=== PATIENT | male | born 1940 | race Two or more races ===

== ENCOUNTER 2018-10-27 12:14 | Inpatient (IN) | payer OTHER ==
[~2018-10-27] VITALS: Ht 177.8 cm; Wt 106.1 kg
[2018-10-27] MEDS ORDERED: SODIUM CHLORIDE 0.9% 1,000 ML IVB ONE (12:56)
[2018-10-27 13:01] LABS: Basophils # (auto) 0.1 uL; Eosinophils # (auto) 0 uL; Eosinophils % (auto) 0.3 % (0.0-7.0); Lymphocytes # (auto) 1.2 uL; Monocytes # (auto) 0.5 uL; Neutrophils # (auto) 8.6 uL; Nucleated Red Blood Cells % 0.1 %; White Blood Cell 10.4 10^3/uL (4.4-10.8)
[2018-10-27 13:03] LABS: Basophils % (auto) 0.6 % (0.0-2.0); Hematocrit 49.3 % (41.0-53.0); Hemoglobin 17.3 g/dL (13.5-17.5); Lymphocytes % (auto) 11.1 % (10.0-50.0); Mean Corpuscular Hemoglobin 34.5 pg (28.0-32.0); Mean Corpuscular Hgb Conc. 35.2 g/dL (32.0-36.0); Mean Corpuscular Volume 97.9 fL (80.0-100.0); Monocytes % (auto) 5.1 % (0.0-12.0); Neutrophils % (auto) 82.9 % (37.0-80.0); Platelet Count (auto) 138 10^3/uL (140-450); Red Blood Cells 5.03 10^6/uL (4.5-5.90); Red Cell Distribution Width 13.8 % (11.8-14.3)
[2018-10-27 13:26] LABS: Albumin 3.5 g/dL (3.4-5.0); BUN/Creatinine Ratio 10.3; Calcium 8.4 mg/dL (8.5-10.1); Potassium 3.8 mmol/L (3.5-5.1)
[2018-10-27 13:32] LABS: Bilirubin, Total 0.8 mg/dL (0.2-1.0); Total Protein 7.2 g/dL (6.4-8.2)
[2018-10-27 13:56] LABS: INR 1.07 (0.9-1.15); Partial Thromboplastin Time 27.3 sec (23.64-32.05)
[2018-10-27] MEDS ORDERED: ONDANSETRON HCL 4 MG/2 ML VIAL IV ONE (14:15)
[2018-10-27] MEDS ORDERED: MORPHINE SULF INJ 2 MG/ML SYRINGE 1ML IV ONE (14:15)
[2018-10-27 16:38] LABS: Urine Bacteria NONE SEEN /hpf (None Seen); Urine Blood TRACE /uL (Negative); Urine Specific Gravity 1.017 (1.001-1.035); Urine WBC <1 /hpf (0 - 3)
[2018-10-27] MEDS ORDERED: DEXTROSE (50%) 50ML SYRG IV PRN (17:15)
[2018-10-27] MEDS ORDERED: MORPHINE SULF INJ 2 MG/ML SYRINGE 1ML IV PRN (17:15)
[2018-10-27] MEDS ORDERED: hydrALAZINE HCL 20 MG/ML VL IV PRN (17:15)
[2018-10-27] MEDS ORDERED: LORazepam 0.5 MG TAB PO PRN (17:15)
[2018-10-27] MEDS ORDERED: NITROGLYCERIN 0.4 MG SL TAB SL PRN (17:15)
[2018-10-27] MEDS: HYDROmorphone HCL 2 MG/ML VL IV PRN ×2 (17:41→23:22)
[2018-10-27] MEDS: ONDANSETRON HCL 4 MG/2 ML VIAL IV PRN ×2 (17:42→23:21)
[2018-10-27] MEDS: SODIUM CHLORIDE 0.9% 1,000 ML IV SCH ×2 (17:46→20:46)
[2018-10-27] MEDS: InsuLIN REG 1unit/0.01ml Soln (100units/ml) SC SCH (18:00)
--- NOTE | 2018-10-27 18:00 | NUR ---
MS admit from ER JOSE G WEEKS admitted to Telemetry unit after SBAR received. Patient oriented to Eneida Nails, primary RN, unit, room, bed, and unit policies regarding patient care and visiting hours. Patient placed on bedside oxygen, weighed by bedscale and encouraged to call if they need something. All questions and concerns addressed, patient verbalized understanding. Note: PT DENIES PAIN OR NAUSEA AT THIS TIME. VERBALIZED COMFORT.
[2018-10-27 18:24] LABS: Cholesterol 163 mg/dL (< 200)
[2018-10-27 18:27] LABS: HDL Cholesterol 38 mg/dL (40-59); LDL Cholesterol 120 mg/dL (< 100); Triglycerides 96 mg/dL (< 150)
[2018-10-27] MEDS: ACCU-CHEK COMFORT CURVE STRIP VI SCH (18:30)
--- NOTE | 2018-10-27 18:44 | NUR ---
Home medications Patient unable to recall names of the medications that he takes at home, Requested to have family bring in a copy/list of his medications.
--- NOTE | 2018-10-27 19:30 | NUR ---
Opening Shift Note Assumed care of patient, alert and oriented x 4. Patient is on room air and ambulatory. No S/S of distress/SOB or pain. Bed in lowest locked position, side rails up x 2, call light within reach. Instructed on POC and to call for assist PRN, will continue to monitor for changes Q1hr and PRN.
[2018-10-27 20:00] VITALS: BP 102/56
--- NOTE | 2018-10-27 21:49 | NUR ---
AMA to smoke Patient was educated on smoking cessation and advised against smoking. Patient verbalized understanding. Signed AMA form to smoke. Will continue to monitor.
--- NOTE | 2018-10-27 21:50 | NUR ---
Patient went down to smoke via wheelchair.
[2018-10-27 22:00] VITALS: BP 102/56
--- NOTE | 2018-10-27 22:30 | NUR ---
Patient returned to room from smoking. Resting in bed.
[2018-10-28] MEDS: ACCU-CHEK COMFORT CURVE STRIP VI SCH ×4 (00:29→18:00)
[2018-10-28] MEDS: InsuLIN REG 1unit/0.01ml Soln (100units/ml) SC SCH ×4 (00:30→18:35)
[2018-10-28] MEDS: SODIUM CHLORIDE 0.9% 1,000 ML IV SCH ×5 (02:20→23:01)
[2018-10-28] MEDS: ACETAMINOPHEN 325 MG TAB PO PRN (03:16)
[2018-10-28 05:16] VITALS: BP 91/43
[2018-10-28 05:24] LABS: Basophils # (auto) 0.1 uL; Eosinophils # (auto) 0.1 uL; Monocytes # (auto) 0.8 uL; Monocytes % (auto) 7.9 % (0.0-12.0); Nucleated Red Blood Cells % 0.1 %; Platelet Count (auto) 120 10^3/uL (140-450); White Blood Cell 9.7 10^3/uL (4.4-10.8)
[2018-10-28 05:26] LABS: Basophils % (auto) 0.8 % (0.0-2.0); Eosinophils % (auto) 1.4 % (0.0-7.0); Lymphocytes # (auto) 1.1 uL; Lymphocytes % (auto) 11.6 % (10.0-50.0); Mean Corpuscular Hemoglobin 34.5 pg (28.0-32.0); Mean Corpuscular Hgb Conc. 34.7 g/dL (32.0-36.0); Mean Corpuscular Volume 99.2 fL (80.0-100.0); Neutrophils # (auto) 7.6 uL; Neutrophils % (auto) 78.3 % (37.0-80.0); Red Blood Cells 4.34 10^6/uL (4.5-5.90); Red Cell Distribution Width 13.9 % (11.8-14.3)
[2018-10-28 05:30] LABS: Albumin 2.8 g/dL (3.4-5.0); Anion Gap 9 (5-15); BUN/Creatinine Ratio 10.7; Blood Urea Nitrogen 12 mg/dL (7-18); Calcium 7.5 mg/dL (8.5-10.1); Carbon Dioxide 22 mmol/L (21-32); Chloride 110 mmol/L (98-107); GFR African American 82 mL/min; GFR Non-African American 67 mL/min; Glucose 129 mg/dL (74-106); Lipase 350 U/L (73-393); Potassium 3.7 mmol/L (3.5-5.1); Sodium 141 mmol/L (136-145)
[2018-10-28 05:33] LABS: Alanine Aminotransferase 17 U/L (16-61); Alkaline Phosphatase 47 U/L (45-117); Aspartate Aminotransferase 16 U/L (15-37); Bilirubin, Total 1.1 mg/dL (0.2-1.0); Total Protein 5.8 g/dL (6.4-8.2)
--- NOTE | 2018-10-28 06:48 | NUR ---
Closing shift note Patient asleep in bed resting. No acute S/S of distress or SOB. Bed in lowest locked position, side rails up x 2, call light within reach. Will endorse care to dayshift RN.
--- NOTE | 2018-10-28 07:30 | NUR ---
Opening Shift Note Assumed care of patient, awake and alert. No S/S of distress/SOB or pain. Instructed on POC and to [place] lfor assist PRN, will continue to monitor for changes Q1hr and PRN.
[2018-10-28 08:12] VITALS: BP 103/39
[2018-10-28] MEDS: HYDROmorphone HCL 2 MG/ML VL IV PRN ×2 (11:21→20:13)
[2018-10-28 12:26] VITALS: BP 110/58
[2018-10-28 16:50] VITALS: BP 98/61
--- NOTE | 2018-10-28 17:00 | NUR ---
SPOKE TO DR POTTER RE: CONSULT. HE WILL SEE PT TOMORROW.
--- NOTE | 2018-10-28 19:00 | NUR ---
CLOSING NOTES PT AWAKE AND ALERT. PT WAS DISCOURAGED TO GO OUTSIDE IN HIS CURRENT CONDITION BUT HE INSISTED ON GOING OUTSIDE TO SMOKE. PT IS NOT STABLE TO WALK LONG DISTANCE ON HIS OWN AND WAS GIVEN A WHEELCHAIR. PT IS AWARE OF THE SURGICAL CONSULT AND THAT HE WILL BE NPO AT MIDNIGHT.
--- NOTE | 2018-10-28 19:20 | NUR ---
Opening Shift Note Assumed care of patient, alert and oriented x 4. No S/S of distress/SOB. Patient reported pain level of 8. Patient on bedrest, weak gait but insists to use wheelchair to go down to smoke, patient educated and advised of smoking cessation and offered nicotine patch, patient refused. Has signed AMA to smoke in hard chart. Bed in lowest locked position, side rails up x 2, call light within reach. Instructed on POC and to call for assist PRN, will continue to monitor for changes Q1hr and PRN.
[2018-10-28 20:00] VITALS: BP 95/37
[2018-10-28 22:00] VITALS: BP 93/37
[2018-10-29] MEDS: ACCU-CHEK COMFORT CURVE STRIP VI SCH ×3 (00:05→11:42)
[2018-10-29] MEDS: SODIUM CHLORIDE 0.9% 1,000 ML IV SCH ×3 (04:01→14:01)
[2018-10-29 05:00] VITALS: BP 88/34
[2018-10-29] MEDS: ACETAMINOPHEN 325 MG TAB PO PRN (05:12)
[2018-10-29] MEDS: HYDROmorphone HCL 2 MG/ML VL IV PRN (05:13)
--- NOTE | 2018-10-29 05:13 | NUR ---
Blood pressure 88/34 Patient is asymptomatic. Rechecked blood pressure reading 103/57. No acute S/S of SOB or distress. Will continue to monitor and continue care.
--- NOTE | 2018-10-29 05:15 | NUR ---
Temperature 101.8 Oral temp of 101.8. Patient reported feeling cold. Administered Acetaminophen 650mg PO. Placed ice packs to patients neck and removed covers. No acute S/S of distress. Will reassess and continue to monitor.
[2018-10-29] MEDS: InsuLIN REG 1unit/0.01ml Soln (100units/ml) SC SCH ×3 (05:44→11:42)
--- NOTE | 2018-10-29 05:58 | NUR ---
Reassessed patients temperature reading of 98.8. Patient reports no longer having chill. No acute S/S of distress. Patient resting in bed. Will continue to monitor and continue care.
[2018-10-29 06:03] LABS: Basophils # (auto) 0.1 uL; Eosinophils # (auto) 0.1 uL; Eosinophils % (auto) 0.8 % (0.0-7.0); Hemoglobin 14.6 g/dL (13.5-17.5); Monocytes # (auto) 0.6 uL; Platelet Count (auto) 113 10^3/uL (140-450); Red Blood Cells 4.19 10^6/uL (4.5-5.90); White Blood Cell 9.5 10^3/uL (4.4-10.8)
[2018-10-29 06:05] LABS: Basophils % (auto) 0.9 % (0.0-2.0); Hematocrit 41.7 % (41.0-53.0); Lymphocytes # (auto) 0.8 uL; Lymphocytes % (auto) 8.8 % (10.0-50.0); Mean Corpuscular Hemoglobin 34.8 pg (28.0-32.0); Mean Corpuscular Hgb Conc. 35.1 g/dL (32.0-36.0); Mean Corpuscular Volume 99.4 fL (80.0-100.0); Monocytes % (auto) 6.8 % (0.0-12.0); Neutrophils # (auto) 7.9 uL; Neutrophils % (auto) 82.7 % (37.0-80.0); Red Cell Distribution Width 13.7 % (11.8-14.3)
[2018-10-29 06:29] LABS: Albumin 2.9 g/dL (3.4-5.0); Calcium 7.7 mg/dL (8.5-10.1); Potassium 3.9 mmol/L (3.5-5.1)
[2018-10-29 06:35] LABS: BUN/Creatinine Ratio 11.6; Bilirubin, Total 1.3 mg/dL (0.2-1.0); Total Protein 6.1 g/dL (6.4-8.2)
--- NOTE | 2018-10-29 06:37 | NUR ---
Closing shift note Patient resting in bed. No acute S/S of distress or SOB noted. Bed in lowest locked position, side rails up x 2, call light within reach. Will endorse care to dayshift RN.
--- NOTE | 2018-10-29 07:30 | NUR ---
Opening Shift Note Assumed care of patient, awake, alert, and oriented x4. No S/S of distress/SOB or pain. IV is in left forearm 20 gauge asymptomatic, intact, patent, and infusing normal saline at 200 mL/hour. Bed is locked and in lowest position and call light is within reach. Instructed on POC and to call for assist PRN, and patient verbalized understanding. Will continue to monitor for changes Q1hr and PRN.
--- NOTE | 2018-10-29 08:00 | NUR ---
Patient taken down to Radiology via wheelchair. No distress noted at time of departure.
[2018-10-29 09:00] VITALS: BP 105/48
--- NOTE | 2018-10-29 09:28 | NUR ---
Received phone call from Dr. Hakeem MD. New orders received.
--- NOTE | 2018-10-29 10:20 | NUR ---
Patient returned from Radiology via wheelchair. No distress noted at time of arrival. Will continue to monitor patient Q1.
--- NOTE | 2018-10-29 10:33 | NUR ---
Dr. Hakeem MD, at bedside. New orders received.
[2018-10-29] MEDS ORDERED: LISI2.5T47 PO ×2 (11:10)
[2018-10-29] MEDS ORDERED: GLIP-204 PO (11:11)
[2018-10-29] MEDS ORDERED: SERT-138 PO (11:12)
[2018-10-29] MEDS ORDERED: QUET25TA46 PO (11:12)
[2018-10-29] MEDS ORDERED: ALBU1AER4 IN (11:13)
[2018-10-29 13:29] VITALS: BP 96/58
--- NOTE | 2018-10-29 13:30 | NUR ---
Discharge instructions given as ordered. Encourage to follow up with PMD as instructed. All questions and concerns addressed. Patient verbalized understanding. Medication reconciliation form completed and copy given to patient. IV removed with catheter intact, pressure dressing applied.
--- NOTE | 2018-10-29 14:53 | NUR ---
Patient taken to taxi via wheelchair with all personal belongings, accompanied by staff. No distress noted at time of departure.
--- NOTE | 2018-10-30 15:29 | NUR ---
SS order: called x 2 yesterday and x 3 today to [facility] to find out what agency the got for pt. I had to leave messages and have yet to receive a call back from [employer] or .
== END 2018-10-29 14:00 | disposition home health service (06) | DRG 439 ==
LOC: ER 12:14 → OVERFLOW 12:15 → WEST WING 18:05
PROVIDERS: ADMIT Hospitalist; ATTEND Hospitalist
DX: K85.00 Idiopathic acute pancreatitis without necrosis or infection (principal); I69.354 Hemiplegia and hemiparesis following cerebral infarction affecting left non-dominant side; I10 Essential (primary) hypertension; E11.9 Type 2 diabetes mellitus without complications; R74.8 Abnormal levels of other serum enzymes; D69.6 Thrombocytopenia, unspecified; F17.210 Nicotine dependence, cigarettes, uncomplicated; J44.9 Chronic obstructive pulmonary disease, unspecified; Z82.49 Family history of ischemic heart disease and other diseases of the circulatory system; Z90.49 Acquired absence of other specified parts of digestive tract; Z90.5 Acquired absence of kidney
CPT/HCPCS: 36415; 71045; 74176; 76705; 78226; 80053; 80061; 81001; 82150; 82962; 83036; 83690; 83735; 84484; 85025; 85610; 85730; 93005; 94761; 96360; G0378; J1815; J2405

== ENCOUNTER 2018-12-30 19:29 | Emergency (ER) | payer OTHER ==
[~2018-12-30] VITALS: Ht 175.3 cm; Wt 99.8 kg
[~2018-12-30 19:29] MED LIST: ALBU1AER4 IN; GLIP-204 PO; LISI2.5T47 PO; QUET25TA46 PO; SERT50TA PO
[2018-12-30] MEDS ORDERED: ONDANSETRON HCL 4 MG/2 ML VIAL ONE (19:53)
[2018-12-30] MEDS ORDERED: MORPHINE SULF INJ 2 MG/ML SYRINGE 1ML ONE (19:54)
[2018-12-30] MEDS ORDERED: ONDANSETRON HCL 4 MG/2 ML VIAL IV ONE (20:00)
[2018-12-30] MEDS ORDERED: MORPHINE SULFATE 4 MG/ML SYR/VIAL IV ONE (20:00)
[2018-12-30 20:24] LABS: Basophils # (auto) 0 uL; Basophils % (auto) 0.3 % (0.0-2.0); Eosinophils # (auto) 0 uL; Eosinophils % (auto) 0.3 % (0.0-7.0); Hematocrit 45.5 % (41.0-53.0); Hemoglobin 15.8 g/dL (13.5-17.5); Lymphocytes # (auto) 0.5 uL; Lymphocytes % (auto) 4.6 % (10.0-50.0); Mean Corpuscular Hemoglobin 34.5 pg (28.0-32.0); Mean Corpuscular Hgb Conc. 34.7 g/dL (32.0-36.0); Mean Corpuscular Volume 99.4 fL (80.0-100.0); Monocytes # (auto) 0.7 uL; Monocytes % (auto) 6.7 % (0.0-12.0); Neutrophils # (auto) 9.5 uL; Neutrophils % (auto) 88.1 % (37.0-80.0); Platelet Count (auto) 160 10^3/uL (140-450); Red Blood Cells 4.58 10^6/uL (4.5-5.90); Red Cell Distribution Width 14.3 % (11.8-14.3); White Blood Cell 10.7 10^3/uL (4.4-10.8)
[2018-12-30 20:41] LABS: Albumin 2.9 g/dL (3.4-5.0); Anion Gap 11 (5-15); Aspartate Aminotransferase 64 U/L (15-37); Blood Urea Nitrogen 17 mg/dL (7-18); Calcium 7.6 mg/dL (8.5-10.1); Carbon Dioxide 21 mmol/L (21-32); Chloride 107 mmol/L (98-107); Glucose 87 mg/dL (74-106); Lipase 35 U/L (73-393); Sodium 139 mmol/L (136-145)
[2018-12-30 20:46] LABS: Alanine Aminotransferase 91 U/L (16-61); Alkaline Phosphatase 96 U/L (45-117); BUN/Creatinine Ratio 13.6; Bilirubin, Total 5.6 mg/dL (0.2-1.0); GFR African American 72 mL/min; GFR Non-African American 59 mL/min; Total Protein 6.2 g/dL (6.4-8.2)
[2018-12-30 21:00] LABS: Potassium 2.9 mmol/L (3.5-5.1)
[2018-12-30] MEDS ORDERED: POTASSIUM EFFERVESENT TAB 25 MEQ PO ONE (21:15)
[2018-12-30] MEDS ORDERED: POTASSIUM CHL 20MEQ/100ML 100 ML IV ONE (21:15)
[2018-12-31 01:06] VITALS: BP 105/55
[2018-12-31 01:16] LABS: Albumin 3.3 g/dL (3.4-5.0); Bilirubin, Direct 4.9 mg/dL (0-0.2)
[2018-12-31 01:19] LABS: Bilirubin, Total 6.6 mg/dL (0.2-1.0); Total Protein 6.5 g/dL (6.4-8.2)
== END 2018-12-31 01:10 | disposition home or self-care (01) ==
LOC: EDBD 19:29 → ER 19:35
DX: K86.1 Other chronic pancreatitis (principal); R94.5 Abnormal results of liver function studies; I10 Essential (primary) hypertension; E11.9 Type 2 diabetes mellitus without complications; E78.00 Pure hypercholesterolemia, unspecified; F17.210 Nicotine dependence, cigarettes, uncomplicated; Z86.73 Personal history of transient ischemic attack (TIA), and cerebral infarction without residual deficits; Z79.899 Other long term (current) drug therapy; Z79.84 Long term (current) use of oral hypoglycemic drugs
CPT/HCPCS: 36415; 74176; 76705; 80053; 80076; 80320; 82150; 83690; 84484; 85025; 93005; 96374; 96375; 99284; J2270; J2405; J3480

== ENCOUNTER 2018-12-31 22:23 | Emergency (ER) | payer OTHER ==
[~2018-12-31] VITALS: Ht 180.3 cm; Wt 100.7 kg
[2018-12-31] MEDS ORDERED: MORPHINE SULFATE 4 MG/ML SYR/VIAL IV ONE (23:45)
[2018-12-31] MEDS ORDERED: ONDANSETRON HCL 4 MG/2 ML VIAL IV ONE (23:45)
[2018-12-31 23:53] LABS: Basophils # (auto) 0 uL; Basophils % (auto) 0.2 % (0.0-2.0); Eosinophils # (auto) 0.1 uL; Eosinophils % (auto) 0.5 % (0.0-7.0); Hemoglobin 15.5 g/dL (13.5-17.5); Monocytes # (auto) 0.8 uL
[2018-12-31 23:55] LABS: Hematocrit 44.3 % (41.0-53.0); Lymphocytes # (auto) 0.7 uL; Lymphocytes % (auto) 6.2 % (10.0-50.0); Mean Corpuscular Hemoglobin 34.7 pg (28.0-32.0); Mean Corpuscular Hgb Conc. 34.9 g/dL (32.0-36.0); Mean Corpuscular Volume 99.5 fL (80.0-100.0); Monocytes % (auto) 7.1 % (0.0-12.0); Platelet Count (auto) 149 10^3/uL (140-450); Red Blood Cells 4.46 10^6/uL (4.5-5.90); Red Cell Distribution Width 14.3 % (11.8-14.3); White Blood Cell 11.6 10^3/uL (4.4-10.8)
[2019-01-01 00:12] LABS: Calcium 8.2 mg/dL (8.5-10.1); Potassium 3.7 mmol/L (3.5-5.1)
[2019-01-01 00:17] LABS: Bilirubin, Total 6.8 mg/dL (0.2-1.0); Total Protein 6.7 g/dL (6.4-8.2)
[2019-01-01 01:51] LABS: Urine Bacteria FEW /hpf (None Seen); Urine Blood Negative /uL (Negative); Urine Specific Gravity 1.016 (1.001-1.035); Urine WBC 3 /hpf (0 - 3)
[2019-01-01 04:57] VITALS: BP 100/44
== END 2019-01-01 06:47 | disposition home or self-care (01) ==
LOC: EDBD 22:23 → ER 22:24
DX: K86.1 Other chronic pancreatitis (principal); K75.9 Inflammatory liver disease, unspecified; E11.9 Type 2 diabetes mellitus without complications; E78.5 Hyperlipidemia, unspecified; I10 Essential (primary) hypertension; F17.210 Nicotine dependence, cigarettes, uncomplicated; Z86.73 Personal history of transient ischemic attack (TIA), and cerebral infarction without residual deficits; Z79.899 Other long term (current) drug therapy
CPT/HCPCS: 36415; 80053; 81001; 82140; 82150; 82962; 83605; 83690; 85025; 93005; 96374; 96375; 99284; J2270; J2405

== ENCOUNTER → 2020-01-07 | Emergency (ER) | payer OTHER ==
[~2020-01-07] VITALS: Ht 154.9 cm; Wt 90.7 kg
[~2020-01-07] MED LIST changes: +MORPHINE SULFATE 4 MG/ML SYR/VIAL IV ONE; +ONDANSETRON HCL 4 MG/2 ML VIAL IV ONE
[2020-01-07 06:42] LABS: Eosinophils # (auto) 0.3 10 ^3/uL (0-0.8); Lymphocytes # (auto) 1.1 10 ^3/uL (0.4-5.4); Monocytes # (auto) 0.6 10 ^3/uL (0-1.3); Neutrophils # (auto) 7.8 10 ^3/uL (1.6-8.6); Nucleated Red Blood Cells % 0.1 %; Red Blood Cells 4.61 10^6/uL (4.5-5.90)
[2020-01-07 06:44] LABS: Basophils # (auto) 0 10 ^3/uL (0-0.2); Basophils % (auto) 0.5 % (0.0-2.0); Eosinophils % (auto) 2.8 % (0.0-7.0); Hematocrit 47.1 % (41.0-53.0); Hemoglobin 15.5 g/dL (13.5-17.5); Lymphocytes % (auto) 11.2 % (10.0-50.0); Mean Corpuscular Hemoglobin 33.7 pg (28.0-32.0); Mean Corpuscular Volume 102.2 fL (80.0-100.0); Monocytes % (auto) 5.9 % (0.0-12.0); Neutrophils % (auto) 79.6 % (37.0-80.0); Platelet Count (auto) 162 10^3/uL (140-450); Red Cell Distribution Width 13.9 % (11.8-14.3); White Blood Cell 9.9 10^3/uL (4.4-10.8)
[2020-01-07 06:56] LABS: Albumin 2.5 g/dL (3.4-5.0); Calcium 9.1 mg/dL (8.5-10.1); Potassium 3.8 mmol/L (3.5-5.1)
[2020-01-07 06:59] LABS: BUN/Creatinine Ratio 10.4; Bilirubin, Total 2.4 mg/dL (0.2-1.0); Total Protein 6.6 g/dL (6.4-8.2)
[2020-01-07 15:33] VITALS: BP 101/66
== END | disposition home or self-care (01) ==
LOC: EDUNIT# 05:33 → EDBD 05:44 → ER 05:44
DX: K74.60 Unspecified cirrhosis of liver (principal); E46 Unspecified protein-calorie malnutrition; F17.210 Nicotine dependence, cigarettes, uncomplicated; E11.9 Type 2 diabetes mellitus without complications; I10 Essential (primary) hypertension; Z86.73 Personal history of transient ischemic attack (TIA), and cerebral infarction without residual deficits; Z79.899 Other long term (current) drug therapy
CPT/HCPCS: 36415; 74176; 80053; 82150; 83690; 85025; 93005; 96374; 96375; 99285; J2270; J2405

== ENCOUNTER 2020-01-08 13:00 | Inpatient (IN) | payer OTHER ==
[~2020-01-08] VITALS: Ht 177.8 cm; Wt 109.6 kg
[~2020-01-08 13:00] MED LIST changes: -MORPHINE SULFATE 4 MG/ML SYR/VIAL IV ONE; -ONDANSETRON HCL 4 MG/2 ML VIAL IV ONE
[2020-01-08] MEDS ORDERED: PANTOPRAZOLE 40 MG/10 ML VIAL INJ IV STA (13:27)
[2020-01-08] MEDS ORDERED: SODIUM CHLORIDE 0.9% 500 ML IVB ONE (13:27)
[2020-01-08] MEDS ORDERED: ONDANSETRON HCL 4 MG/2 ML VIAL IV ONE ×2 (13:30→17:30)
[2020-01-08] MEDS ORDERED: HYDROmorphone HCL 2 MG/ML VL IV ONE ×2 (13:30→17:30)
[2020-01-08 14:36] LABS: Basophils # (auto) 0 10 ^3/uL (0-0.2); Basophils % (auto) 0.4 % (0.0-2.0); Eosinophils # (auto) 0.1 10 ^3/uL (0-0.8); Eosinophils % (auto) 0.6 % (0.0-7.0); Hematocrit 46.5 % (41.0-53.0); Hemoglobin 15.2 g/dL (13.5-17.5); Lymphocytes # (auto) 0.7 10 ^3/uL (0.4-5.4); Lymphocytes % (auto) 5.2 % (10.0-50.0); Mean Corpuscular Hgb Conc. 32.6 g/dL (32.0-36.0); Mean Corpuscular Volume 101.1 fL (80.0-100.0); Monocytes # (auto) 0.6 10 ^3/uL (0-1.3); Monocytes % (auto) 4.9 % (0.0-12.0); Neutrophils # (auto) 11.7 10 ^3/uL (1.6-8.6); Neutrophils % (auto) 88.9 % (37.0-80.0); Nucleated Red Blood Cells % 0.1 %; Platelet Count (auto) 161 10^3/uL (140-450); Red Cell Distribution Width 13.9 % (11.8-14.3); White Blood Cell 13.2 10^3/uL (4.4-10.8)
[2020-01-08 16:44] LABS: Urine Bacteria NONE SEEN /hpf (None Seen); Urine Blood Negative /uL (Negative); Urine Mucus FEW (None Seen); Urine Specific Gravity 1.019 (1.001-1.035); Urine WBC 21 /hpf (0 - 3)
[2020-01-08] MEDS ORDERED: cefTRIAXone 1GM/50ML D5W 50 ML IV ONE (17:30)
[2020-01-08] MEDS ORDERED: ACETAMINOPHEN 325 MG TAB PO PRN (18:00)
[2020-01-08] MEDS ORDERED: MORPHINE SULF INJ 2 MG/ML SYRINGE 1ML IV PRN (18:00)
[2020-01-08] MEDS ORDERED: NITROGLYCERIN 0.4 MG SL TAB SL PRN (18:00)
[2020-01-08] MEDS ORDERED: ONDANSETRON HCL 4 MG/2 ML VIAL IV PRN (18:00)
[2020-01-08] MEDS ORDERED: ALBUTEROL SULFATE 108 MCG IN PRN (18:15)
[2020-01-08] MEDS ORDERED: ALBUTEROL SULF 2.5 MG/0.5ML(0.5%) NEB SOLN NEB PRN (18:30)
[2020-01-08 19:56] LABS: Chloride 108 mmol/L (98-107); Potassium 4.1 mmol/L (3.5-5.1); Sodium 138 mmol/L (136-145)
[2020-01-08 20:07] LABS: Alanine Aminotransferase 80 U/L (16-61); Alkaline Phosphatase 146 U/L (45-117); Aspartate Aminotransferase 71 U/L (15-37); Bilirubin, Total 9.2 mg/dL (0.2-1.0); GFR African American 58 mL/min; GFR Non-African American 48 mL/min; Total Protein 7.3 g/dL (6.4-8.2)
[2020-01-08 20:33] VITALS: BP 93/51
--- NOTE | 2020-01-08 20:45 | NUR ---
MS admit from ER JOSE G WEEKS admitted to tele/MS after SBAR received. Patient oriented to Sunitha Beltran RN primary RN, unit, room, bed, and unit policies regarding patient care and visiting hours. Patient weighed by bedscale and encouraged to call if they need something. All questions and concerns addressed, patient verbalized understanding, will continue to monitor Note:
[2020-01-08 21:00] LABS: Albumin 3.2 g/dL (3.4-5.0); Anion Gap 15 (5-15); BUN/Creatinine Ratio 12.8; Blood Urea Nitrogen 19 mg/dL (7-18); Calcium 9.3 mg/dL (8.5-10.1); Carbon Dioxide 15 mmol/L (21-32); Glucose 63 mg/dL (74-106)
--- NOTE | 2020-01-08 21:00 | NUR ---
Spoke to pharmacist regarding time of antibiotic. Per pharmacist, its OK to skip midnight dose since first dose will be given at 2100.
[2020-01-08 21:01] LABS: Lipase 50 U/L (73-393)
--- NOTE | 2020-01-08 21:25 | NUR ---
PT ASSESSED FOR PRN MED NEB TX. SPO2 96% ON 2L NC. PT DENIES ANY RESPIRATORY DISTRESS. NO TX INDICATED. PT IS AWARE TO HAVE RT PAGED IF TX NEEDED.
[2020-01-08 21:27] VITALS: BP 97/28
[2020-01-08] MEDS: PIPERACILLIN-TAZOB 3.375GM 100 ML IV SCH (21:39)
[2020-01-08] MEDS: QUEtiapine FUMARATE 25 MG TAB PO SCH (21:40)
[2020-01-08] MEDS: SODIUM CHLORIDE 0.9% 1,000 ML IV SCH (21:40)
[2020-01-08 22:39] LABS: Albumin 2.5 g/dL (3.4-5.0); Calcium 8.2 mg/dL (8.5-10.1); Potassium 4.3 mmol/L (3.5-5.1)
[2020-01-08 22:44] LABS: BUN/Creatinine Ratio 13.8; Bilirubin, Total 7.5 mg/dL (0.2-1.0); Total Protein 6.1 g/dL (6.4-8.2)
[2020-01-08 23:46] VITALS: BP 93/51
[2020-01-09 01:20] VITALS: BP 93/51
--- NOTE | 2020-01-09 04:15 | NUR ---
Patient complained of abdominal pain 8, noted no pain meds at this time. Paged , awaiting call back
--- NOTE | 2020-01-09 04:17 | NUR ---
Spoke to Dr. Scott and updated on patient's status. Received new order at this time and read back, will carry out order
[2020-01-09] MEDS: MORPHINE SULF INJ 2 MG/ML SYRINGE 1ML IV PRN (04:28)
--- NOTE | 2020-01-09 04:34 | NUR ---
Instructed patient to be NPO for now, for MRCP MRI today, patient verbalized understanding
[2020-01-09 05:00] VITALS: BP 116/47
[2020-01-09] MEDS: PIPERACILLIN-TAZOB 3.375GM 100 ML IV SCH ×4 (05:51→18:00)
[2020-01-09 06:13] LABS: Basophils # (auto) 0 10 ^3/uL (0-0.2); Basophils % (auto) 0.3 % (0.0-2.0); Eosinophils # (auto) 0.1 10 ^3/uL (0-0.8); Eosinophils % (auto) 1.6 % (0.0-7.0); Hematocrit 42.3 % (41.0-53.0); Hemoglobin 14.1 g/dL (13.5-17.5); Lymphocytes # (auto) 0.9 10 ^3/uL (0.4-5.4); Mean Corpuscular Hemoglobin 33.6 pg (28.0-32.0); Mean Corpuscular Hgb Conc. 33.3 g/dL (32.0-36.0); Mean Corpuscular Volume 101.1 fL (80.0-100.0); Monocytes # (auto) 0.5 10 ^3/uL (0-1.3); Monocytes % (auto) 6.2 % (0.0-12.0); Neutrophils # (auto) 5.9 10 ^3/uL (1.6-8.6); Neutrophils % (auto) 79.9 % (37.0-80.0); Platelet Count (auto) 120 10^3/uL (140-450); Red Blood Cells 4.19 10^6/uL (4.5-5.90); White Blood Cell 7.3 10^3/uL (4.4-10.8)
[2020-01-09 07:12] LABS: Potassium 3.5 mmol/L (3.5-5.1)
[2020-01-09 07:30] LABS: Albumin 2.4 g/dL (3.4-5.0); BUN/Creatinine Ratio 15.3; Bilirubin, Total 6.6 mg/dL (0.2-1.0); Calcium 8.3 mg/dL (8.5-10.1); Total Protein 5.9 g/dL (6.4-8.2)
[2020-01-09 08:15] LABS: INR 1.26 (0.9-1.15)
[2020-01-09 08:39] VITALS: BP 83/46
[2020-01-09] MEDS: SODIUM CHLORIDE 0.9% 1,000 ML IV SCH ×3 (09:27→23:10)
--- NOTE | 2020-01-09 09:40 | NUR ---
PATIENT STATES HE CAN'T HAVE MRI BECAUSE HE HAS A PIN IN HIS BACK AND WAS TOLD HE CANNOT HAVE MRI'S.
[2020-01-09] MEDS: SERTRALINE HCL 50 MG TAB PO SCH (09:45)
--- NOTE | 2020-01-09 11:00 | NUR ---
Respiratory note: PT ASSESSED FOR PRN MN TX. HR 58, RR 18, POX 92% ON RA, BS ARE CLR. NO SOB OR DISTRESS NOTED AT THIS TIME. PT WAS NOTIFY TO HAVE RT PAGED FOR MN TX.
[2020-01-09 13:07] VITALS: BP 92/46
--- NOTE | 2020-01-09 14:39 | NUR ---
Assessment Patient is an 79-year-old male who is alert and oriented. Prior to admission patient lived home with family and functioned with assistance. Per patient his son Bertin Schreiber helps him with his ADLs. Per patient he will return home to his prior living arrangements post discharge. Advised patient there is a social service consult for hospice. Patient informed me doctor spoke to him in regards of hospice. Per patient he would like the hospice that doctor is recommending. Informed patient he has the right to participate in all discharge planning. Patient verbalized understanding and agreed to discharge plan. Clinical information was faxed to [facility]. Per So with [facility] patient has been accepted and service to start upon d/c . Transportation will be arranged upon discharge day. Addendum: 01/09/20 at 1507 by KASIE WHITING SS Amended: Links added.
[2020-01-09 16:34] VITALS: BP 95/46
--- NOTE | 2020-01-09 19:20 | NUR ---
Opening Shift Note Assumed care of patient from MESFIN Grover, awake and alert. No S/S of distress/SOB or pain. Instructed on POC and to call for assist PRN, bed in lowest position, brakes locked, call light and urinal within reach. Bed alarm on. Will continue to monitor for changes Q1hr and PRN.
--- NOTE | 2020-01-09 20:27 | NUR ---
Respiratory note: ASSESSED PT FOR PRN MED NEB AT THIS TIME, NO DISTRESS NOTED, PULSE OX 94% ON RA, HR 56, RR 18, BILATERAL BS DIMINISHED
--- NOTE | 2020-01-09 20:30 | NUR ---
IV removal IV site leaking. IV DC'd with clean sterile technique, catheter fully intact. Pressure dressing applied to site. Patient tolerated well.
--- NOTE | 2020-01-09 20:45 | NUR ---
IV insertion IV access obtained, via clean sterile technique by inserting 20gauge catheter at Left Forarm after 1 attempt. IV secured properly. No trauma to site. Patient tolerated well.
[2020-01-09 21:34] VITALS: BP 115/52
[2020-01-09] MEDS: PANTOPRAZOLE 40 MG TAB PO SCH (22:30)
[2020-01-09] MEDS: QUEtiapine FUMARATE 25 MG TAB PO SCH (22:30)
[2020-01-10] MEDS: PIPERACILLIN-TAZOB 3.375GM 100 ML IV SCH ×3 (00:05→12:17)
[2020-01-10 04:56] VITALS: BP 117/59
--- NOTE | 2020-01-10 05:30 | NUR ---
Respiratory note: ASSESSED PT FOR PRN MED NEB AT THIS TIME, NO DISTRESS NOTED, PULSE OX 93% ON RA, HR 58, RR 18, BILATERAL BS DIMINISHED. PT AWARE TO HAVE RT PAGED IF BECOMES SOB.
[2020-01-10] MEDS: MORPHINE SULF INJ 2 MG/ML SYRINGE 1ML IV PRN (06:00)
[2020-01-10 06:29] LABS: Basophils # (auto) 0 10 ^3/uL (0-0.2); Basophils % (auto) 0.4 % (0.0-2.0); Eosinophils # (auto) 0.2 10 ^3/uL (0-0.8); Hematocrit 38.4 % (41.0-53.0); Lymphocytes # (auto) 0.8 10 ^3/uL (0.4-5.4); Monocytes # (auto) 0.3 10 ^3/uL (0-1.3)
[2020-01-10 06:34] LABS: Eosinophils % (auto) 5.1 % (0.0-7.0); Hemoglobin 13.4 g/dL (13.5-17.5); Lymphocytes % (auto) 19.3 % (10.0-50.0); Mean Corpuscular Hemoglobin 34.8 pg (28.0-32.0); Mean Corpuscular Hgb Conc. 34.7 g/dL (32.0-36.0); Mean Corpuscular Volume 100.1 fL (80.0-100.0); Monocytes % (auto) 8.2 % (0.0-12.0); Neutrophils # (auto) 2.6 10 ^3/uL (1.6-8.6); Platelet Count (auto) 114 10^3/uL (140-450); Red Blood Cells 3.84 10^6/uL (4.5-5.90); White Blood Cell 3.9 10^3/uL (4.4-10.8)
[2020-01-10 06:43] LABS: Albumin 2.3 g/dL (3.4-5.0); Calcium 7.8 mg/dL (8.5-10.1); Potassium 3.4 mmol/L (3.5-5.1)
[2020-01-10 06:47] LABS: BUN/Creatinine Ratio 13.3; Bilirubin, Total 6.8 mg/dL (0.2-1.0); Total Protein 5.6 g/dL (6.4-8.2)
[2020-01-10] MEDS ORDERED: POTASSIUM CHL 20 Meq TABLET PO ONE (07:30)
[2020-01-10] MEDS ORDERED: PANT40TA2 PO (07:30)
[2020-01-10] MEDS: SODIUM CHLORIDE 0.9% 1,000 ML IV SCH ×2 (08:51→15:30)
[2020-01-10 09:00] VITALS: BP 121/57
[2020-01-10] MEDS ORDERED: PANTOPRAZOLE 40 MG/10 ML VIAL INJ IV SCH (10:00)
[2020-01-10] MEDS: PANTOPRAZOLE 40 MG TAB PO SCH (10:46)
[2020-01-10] MEDS: SERTRALINE HCL 50 MG TAB PO SCH (10:46)
[2020-01-10 13:00] VITALS: BP 120/69
--- NOTE | 2020-01-10 15:00 | NUR ---
D/C Planning Safety transportation will transport patient at 5pm via [facility]. Informed MESFIN Grover.
--- NOTE | 2020-01-10 17:50 | NUR ---
Discharge instructions given as ordered. Encourage to follow up with PMD as instructed. All questions and concerns addressed. Patient verbalized understanding. Medication reconciliation form completed and copy given to patient. IV removed with catheter intact, pressure dressing applied. Telemetry unit returned to ICU. Patient transported via wheelchair with all personal belongings. No distress noted at time of departure. hospice nurse with patient at time of discharge.
== END 2020-01-10 17:00 | disposition hospice, home (50) | DRG 432 ==
LOC: EDBD 13:00 → ER 13:00 → CENTRAL 13:01
PROVIDERS: ADMIT Hospitalist; ATTEND Hospitalist
DX: K74.60 Unspecified cirrhosis of liver (principal); K85.90 Acute pancreatitis without necrosis or infection, unspecified; K76.6 Portal hypertension; I69.354 Hemiplegia and hemiparesis following cerebral infarction affecting left non-dominant side; J44.9 Chronic obstructive pulmonary disease, unspecified; E78.5 Hyperlipidemia, unspecified; F17.210 Nicotine dependence, cigarettes, uncomplicated; I10 Essential (primary) hypertension; Z80.9 Family history of malignant neoplasm, unspecified; Z82.49 Family history of ischemic heart disease and other diseases of the circulatory system; Z90.5 Acquired absence of kidney; N40.0 Benign prostatic hyperplasia without lower urinary tract symptoms
CPT/HCPCS: 36415; 76705; 80053; 81001; 83690; 85025; 85610; 87081; 96361; 96365; 96375; C9113; G0378; J0696; J2405; J2543

== ENCOUNTER 2020-01-15 13:54 | Inpatient (IN) | payer OTHER ==
[~2020-01-15] VITALS: Ht 175.3 cm; Wt 107.6 kg
[~2020-01-15 13:54] MED LIST changes: +PANT40TA2 PO
[2020-01-15 15:41] LABS: Eosinophils # (auto) 0.1 10 ^3/uL (0-0.8); Eosinophils % (auto) 0.6 % (0.0-7.0); Lymphocytes # (auto) 0.9 10 ^3/uL (0.4-5.4); Monocytes # (auto) 0.7 10 ^3/uL (0-1.3); Red Cell Distribution Width 14.8 % (11.8-14.3); White Blood Cell 16.6 10^3/uL (4.4-10.8)
[2020-01-15 15:43] LABS: Basophils # (auto) 0.1 10 ^3/uL (0-0.2); Basophils % (auto) 0.6 % (0.0-2.0); Hematocrit 43.4 % (41.0-53.0); Hemoglobin 14.9 g/dL (13.5-17.5); Lymphocytes % (auto) 5.4 % (10.0-50.0); Mean Corpuscular Hemoglobin 34.5 pg (28.0-32.0); Mean Corpuscular Hgb Conc. 34.3 g/dL (32.0-36.0); Mean Corpuscular Volume 100.7 fL (80.0-100.0); Monocytes % (auto) 4.2 % (0.0-12.0); Neutrophils # (auto) 14.8 10 ^3/uL (1.6-8.6); Neutrophils % (auto) 89.2 % (37.0-80.0); Platelet Count (auto) 283 10^3/uL (140-450); Red Blood Cells 4.31 10^6/uL (4.5-5.90)
[2020-01-15 16:02] LABS: Albumin 2.8 g/dL (3.4-5.0); Amylase 535 U/L (25-115); Blood Urea Nitrogen 13 mg/dL (7-18); Chloride 109 mmol/L (98-107); Glucose 60 mg/dL (74-106); Potassium 3.6 mmol/L (3.5-5.1); Sodium 139 mmol/L (136-145)
[2020-01-15 16:11] LABS: INR 1.07 (0.9-1.15); Partial Thromboplastin Time 24.3 sec (23.0-31.2)
[2020-01-15 16:12] LABS: Alanine Aminotransferase 62 U/L (16-61); Alkaline Phosphatase 321 U/L (45-117); Anion Gap 9 (5-15); Aspartate Aminotransferase 103 U/L (15-37); BUN/Creatinine Ratio 10.5; Bilirubin, Total 10.4 mg/dL (0.2-1.0); Calcium 8.9 mg/dL (8.5-10.1); Carbon Dioxide 21 mmol/L (21-32); GFR African American 72 mL/min; GFR Non-African American 60 mL/min; Lipase 16302 U/L (73-393); Magnesium 2.2 mg/dL (1.6-2.6); Total Protein 7.1 g/dL (6.4-8.2)
[2020-01-15] MEDS ORDERED: DEXTROSE (50%) 50ML SYRG IV ONE (17:15)
[2020-01-15] MEDS ORDERED: cefTRIAXone 1GM/50ML D5W 50 ML IV ONE (17:30)
[2020-01-15] MEDS ORDERED: ONDANSETRON HCL 4 MG/2 ML VIAL IV PRN (17:45)
[2020-01-15] MEDS ORDERED: MORPHINE SULF INJ 2 MG/ML SYRINGE 1ML IV PRN (17:45)
[2020-01-15] MEDS ORDERED: hydrALAZINE HCL 20 MG/ML VL IV PRN (17:45)
[2020-01-15] MEDS ORDERED: NITROGLYCERIN 0.4 MG SL TAB SL PRN (17:45)
[2020-01-15] MEDS ORDERED: SODIUM CHLORIDE 0.9% 1,000 ML IV ONE (17:45)
[2020-01-15] MEDS: PIPERACILLIN-TAZOB 2.25GM 50 ML IV SCH ×2 (19:04→19:05)
[2020-01-15] MEDS: HYDROmorphone HCL 2 MG/ML VL IV PRN (21:07)
[2020-01-15 22:00] VITALS: BP 118/52
[2020-01-15 22:47] VITALS: BP 118/52
[2020-01-16] MEDS: PIPERACILLIN-TAZOB 2.25GM 50 ML IV SCH ×2 (00:05→06:00)
[2020-01-16] MEDS: HYDROmorphone HCL 2 MG/ML VL IV PRN ×5 (01:07→18:31)
[2020-01-16 05:00] VITALS: BP 126/53
[2020-01-16 06:26] LABS: Potassium 3.5 mmol/L (3.5-5.1)
[2020-01-16 06:30] LABS: Basophils # (auto) 0 10 ^3/uL (0-0.2); Basophils % (auto) 0.2 % (0.0-2.0); Eosinophils # (auto) 0 10 ^3/uL (0-0.8); Eosinophils % (auto) 0.1 % (0.0-7.0); Hematocrit 37.7 % (41.0-53.0); Hemoglobin 13.3 g/dL (13.5-17.5); Lymphocytes # (auto) 0.6 10 ^3/uL (0.4-5.4); Mean Corpuscular Hemoglobin 35.1 pg (28.0-32.0); Mean Corpuscular Hgb Conc. 35.2 g/dL (32.0-36.0); Mean Corpuscular Volume 99.8 fL (80.0-100.0); Monocytes # (auto) 0.6 10 ^3/uL (0-1.3); Monocytes % (auto) 4.8 % (0.0-12.0); Neutrophils # (auto) 10.6 10 ^3/uL (1.6-8.6); Neutrophils % (auto) 89.9 % (37.0-80.0); Platelet Count (auto) 221 10^3/uL (140-450); Red Blood Cells 3.78 10^6/uL (4.5-5.90); Red Cell Distribution Width 14.7 % (11.8-14.3); White Blood Cell 11.8 10^3/uL (4.4-10.8)
[2020-01-16 06:33] LABS: BUN/Creatinine Ratio 14.1; Calcium 8.3 mg/dL (8.5-10.1)
[2020-01-16 09:00] VITALS: BP 106/55
[2020-01-16 09:37] LABS: Albumin 2.2 g/dL (3.4-5.0)
[2020-01-16 09:43] LABS: Bilirubin, Direct 10.5 mg/dL (0-0.2); Bilirubin, Total 12.6 mg/dL (0.2-1.0); Total Protein 5.8 g/dL (6.4-8.2)
[2020-01-16 12:47] VITALS: BP 105/50
[2020-01-16 16:47] VITALS: BP 117/45
[2020-01-16] MEDS: PIPERACILLIN-TAZOB 3.375GM 100 ML IV SCH ×2 (18:31→21:09)
[2020-01-16] MEDS: LACTATED RINGER'S 1,000 ML IV SCH (18:31)
[2020-01-16 22:00] VITALS: BP 121/59
[2020-01-17] MEDS: LACTATED RINGER'S 1,000 ML IV SCH ×2 (00:20→17:17)
[2020-01-17] MEDS: HYDROmorphone HCL 2 MG/ML VL IV PRN ×2 (02:07→17:27)
[2020-01-17] MEDS: PIPERACILLIN-TAZOB 3.375GM 100 ML IV SCH ×4 (03:06→21:22)
[2020-01-17 05:00] VITALS: BP 105/34
[2020-01-17 05:59] LABS: Mean Corpuscular Volume 102.4 fL (80.0-100.0); Monocytes # (auto) 0.4 10 ^3/uL (0-1.3); Neutrophils # (auto) 8.1 10 ^3/uL (1.6-8.6); Nucleated Red Blood Cells % 0.1 %; Red Cell Distribution Width 15.4 % (11.8-14.3)
[2020-01-17 06:03] LABS: Basophils # (auto) 0.1 10 ^3/uL (0-0.2); Basophils % (auto) 0.9 % (0.0-2.0); Eosinophils # (auto) 0.2 10 ^3/uL (0-0.8); Eosinophils % (auto) 2.5 % (0.0-7.0); Hematocrit 40.9 % (41.0-53.0); Hemoglobin 14.5 g/dL (13.5-17.5); Lymphocytes % (auto) 9.7 % (10.0-50.0); Mean Corpuscular Hemoglobin 36.4 pg (28.0-32.0); Mean Corpuscular Hgb Conc. 35.6 g/dL (32.0-36.0); Monocytes % (auto) 3.9 % (0.0-12.0); Platelet Count (auto) 254 10^3/uL (140-450); Red Blood Cells 3.99 10^6/uL (4.5-5.90); White Blood Cell 9.8 10^3/uL (4.4-10.8)
[2020-01-17 06:19] LABS: Potassium 3.5 mmol/L (3.5-5.1)
[2020-01-17 06:38] LABS: BUN/Creatinine Ratio 15.4; Calcium 8.8 mg/dL (8.5-10.1)
[2020-01-17 08:48] LABS: Alanine Aminotransferase 42 U/L (16-61); Aspartate Aminotransferase 58 U/L (15-37)
[2020-01-17 09:00] VITALS: BP 112/56
[2020-01-17 10:47] LABS: Bilirubin, Direct 11.5 mg/dL (0-0.2); Bilirubin, Total 14.9 mg/dL (0.2-1.0)
[2020-01-17 13:00] VITALS: BP 116/52
[2020-01-17 17:00] VITALS: BP 127/56
[2020-01-17 22:00] VITALS: BP 140/49
[2020-01-18] MEDS: LACTATED RINGER'S 1,000 ML IV SCH ×2 (03:00→16:20)
[2020-01-18] MEDS: PIPERACILLIN-TAZOB 3.375GM 100 ML IV SCH ×4 (04:00→20:19)
[2020-01-18 05:00] VITALS: BP 120/40
[2020-01-18 06:59] LABS: Basophils # (auto) 0.1 10 ^3/uL (0-0.2); Eosinophils # (auto) 0.2 10 ^3/uL (0-0.8); Monocytes # (auto) 0.3 10 ^3/uL (0-1.3); White Blood Cell 6.5 10^3/uL (4.4-10.8)
[2020-01-18 07:02] LABS: Basophils % (auto) 1.1 % (0.0-2.0); Hematocrit 36.3 % (41.0-53.0); Hemoglobin 13.1 g/dL (13.5-17.5); Lymphocytes % (auto) 15.9 % (10.0-50.0); Mean Corpuscular Hemoglobin 35.7 pg (28.0-32.0); Mean Corpuscular Volume 99.2 fL (80.0-100.0); Monocytes % (auto) 5.2 % (0.0-12.0); Neutrophils # (auto) 4.9 10 ^3/uL (1.6-8.6); Neutrophils % (auto) 74.8 % (37.0-80.0); Platelet Count (auto) 253 10^3/uL (140-450); Red Blood Cells 3.66 10^6/uL (4.5-5.90); Red Cell Distribution Width 14.8 % (11.8-14.3)
[2020-01-18 07:28] LABS: Potassium 3.3 mmol/L (3.5-5.1)
[2020-01-18 07:35] LABS: Albumin 2.2 g/dL (3.4-5.0); BUN/Creatinine Ratio 13.5; Bilirubin, Direct 9.3 mg/dL (0-0.2); Bilirubin, Total 11.7 mg/dL (0.2-1.0); Calcium 8.2 mg/dL (8.5-10.1)
[2020-01-18 07:55] LABS: INR 1.13 (0.9-1.15)
[2020-01-18 09:00] VITALS: BP 124/72
[2020-01-18 13:00] VITALS: BP 118/83
[2020-01-18 17:00] VITALS: BP 137/66
[2020-01-18 22:00] VITALS: BP 101/54
[2020-01-18] MEDS: ZOLPIDEM TARTRATE 5 MG TAB PO PRN (22:46)
[2020-01-19] MEDS: PIPERACILLIN-TAZOB 3.375GM 100 ML IV SCH ×4 (03:00→21:01)
[2020-01-19 05:30] VITALS: BP 142/60
[2020-01-19] MEDS: LACTATED RINGER'S 1,000 ML IV SCH ×2 (05:40→19:00)
[2020-01-19 06:25] LABS: Basophils # (auto) 0.1 10 ^3/uL (0-0.2); Eosinophils # (auto) 0.2 10 ^3/uL (0-0.8); Eosinophils % (auto) 2.8 % (0.0-7.0); Hematocrit 35.9 % (41.0-53.0); Hemoglobin 12.9 g/dL (13.5-17.5); Lymphocytes # (auto) 1.1 10 ^3/uL (0.4-5.4); Lymphocytes % (auto) 17.7 % (10.0-50.0); Mean Corpuscular Hemoglobin 35.6 pg (28.0-32.0); Mean Corpuscular Hgb Conc. 35.9 g/dL (32.0-36.0); Mean Corpuscular Volume 99.1 fL (80.0-100.0); Monocytes # (auto) 0.3 10 ^3/uL (0-1.3); Monocytes % (auto) 5.5 % (0.0-12.0); Neutrophils # (auto) 4.3 10 ^3/uL (1.6-8.6); Platelet Count (auto) 261 10^3/uL (140-450); Red Blood Cells 3.62 10^6/uL (4.5-5.90); Red Cell Distribution Width 14.9 % (11.8-14.3)
[2020-01-19 06:32] LABS: INR 1.19 (0.9-1.15)
[2020-01-19 06:41] LABS: Albumin 2.2 g/dL (3.4-5.0)
[2020-01-19 06:47] LABS: BUN/Creatinine Ratio 9.3; Bilirubin, Total 8.9 mg/dL (0.2-1.0); Total Protein 6.2 g/dL (6.4-8.2)
[2020-01-19 09:00] VITALS: BP 105/44
[2020-01-19] MEDS ORDERED: IOHEXOL 300 MG/ML 100ML BOTTLE IJ ONE (11:11)
[2020-01-19] MEDS: POTASSIUM CHL 20MEQ/100ML 100 ML IV SCH ×2 (11:15→18:46)
[2020-01-19] MEDS ORDERED: LEVO750T8 PO (11:19)
[2020-01-19] MEDS ORDERED: METR500T PO (11:19)
[2020-01-19] MEDS ORDERED: LIDOCAINE 1% HCL (LOCAL ANESTH.) INJ 20ML MDV ONE (11:28)
[2020-01-19] MEDS ORDERED: PROPOFOL 10 MG/ML 20 ML IV ONE ×3 (11:29→12:53)
[2020-01-19] MEDS ORDERED: ONDANSETRON HCL 4 MG/2 ML VIAL ONE (11:29)
[2020-01-19] MEDS ORDERED: MIDAZOLAM HCL 1MG/1ML-2 ML VIAL ONE (11:29)
[2020-01-19] MEDS ORDERED: SODIUM CHLORIDE LOCK 10 ML ONE (11:29)
[2020-01-19] MEDS ORDERED: fentaNYL CITRATE 100 MCG/2 ML VL ONE (11:29)
[2020-01-19] MEDS ORDERED: KETAMINE HCL 10 ML ONE (11:29)
[2020-01-19] MEDS ORDERED: HYDROmorphone HCL 2 MG/ML VL IV PRN (13:30)
[2020-01-19] MEDS ORDERED: ACCU-CHEK COMFORT CURVE STRIP VI ONE (13:30)
[2020-01-19] MEDS ORDERED: ONDANSETRON HCL 4 MG/2 ML VIAL IV PRN (13:30)
[2020-01-19] MEDS ORDERED: MORPHINE SULFATE 4 MG/ML SYR/VIAL IV PRN (13:30)
[2020-01-19 17:00] VITALS: BP 140/72
[2020-01-19] MEDS: ZOLPIDEM TARTRATE 5 MG TAB PO PRN (21:01)
[2020-01-19 23:08] VITALS: BP 136/76
[2020-01-20] MEDS: PIPERACILLIN-TAZOB 3.375GM 100 ML IV SCH ×4 (03:00→20:32)
[2020-01-20 05:59] VITALS: BP 137/69
[2020-01-20 08:49] VITALS: BP 125/57
[2020-01-20 09:41] LABS: Calcium 7.8 mg/dL (8.5-10.1); Potassium 3.4 mmol/L (3.5-5.1)
[2020-01-20 09:43] LABS: Bilirubin, Total 7.2 mg/dL (0.2-1.0); Total Protein 5.6 g/dL (6.4-8.2)
[2020-01-20] MEDS: LACTATED RINGER'S 1,000 ML IV SCH ×2 (11:19→21:40)
[2020-01-20 13:00] VITALS: BP 104/48
[2020-01-20 17:00] VITALS: BP 139/78
[2020-01-20 20:00] VITALS: BP 135/70
[2020-01-20] MEDS: ZOLPIDEM TARTRATE 5 MG TAB PO PRN (20:32)
[2020-01-21] VITALS (7 sets, daily range): BP systolic 94–135; BP diastolic 43–70
[2020-01-21] MEDS: PIPERACILLIN-TAZOB 3.375GM 100 ML IV SCH ×3 (02:31→15:58)
[2020-01-21 09:55] LABS: Potassium 3.4 mmol/L (3.5-5.1)
[2020-01-21 09:56] LABS: Albumin 2.1 g/dL (3.4-5.0); Calcium 7.8 mg/dL (8.5-10.1)
[2020-01-21 10:01] LABS: BUN/Creatinine Ratio 9.7; Bilirubin, Total 6.9 mg/dL (0.2-1.0); Total Protein 5.6 g/dL (6.4-8.2)
[2020-01-21] MEDS: LACTATED RINGER'S 1,000 ML IV SCH (11:07)
[2020-01-21] MEDS ORDERED: POTASSIUM CHL 10 Meq TABLET PO ONE (11:15)
== END 2020-01-21 21:05 | disposition short-term general hospital (02) | DRG 444 ==
LOC: ER 13:54 → EDBD 13:54 → TELE 13:55 → TELE-CENTR 21:00
PROVIDERS: ADMIT Internal Medicine; ATTEND Internal Medicine
PROC: BF101ZZ Fluoroscopy of Bile Ducts using Low Osmolar Contrast (ICD-10-PCS; 2020-01-19)
PROC: 0FJB8ZZ Inspection of Hepatobiliary Duct, Via Natural or Artificial Opening Endoscopic (ICD-10-PCS; principal; 2020-01-19 11:37)
DX: K80.71 Calculus of gallbladder and bile duct without cholecystitis with obstruction (principal); K85.10 Biliary acute pancreatitis without necrosis or infection; N17.9 Acute kidney failure, unspecified; E11.9 Type 2 diabetes mellitus without complications; E78.5 Hyperlipidemia, unspecified; E87.6 Hypokalemia; F17.210 Nicotine dependence, cigarettes, uncomplicated; F32.9 Major depressive disorder, single episode, unspecified; N28.1 Cyst of kidney, acquired; E66.01 Morbid (severe) obesity due to excess calories; K74.60 Unspecified cirrhosis of liver; E86.0 Dehydration; I10 Essential (primary) hypertension; J44.9 Chronic obstructive pulmonary disease, unspecified; K57.10 Diverticulosis of small intestine without perforation or abscess without bleeding; Z79.84 Long term (current) use of oral hypoglycemic drugs; Z79.899 Other long term (current) drug therapy; Z86.73 Personal history of transient ischemic attack (TIA), and cerebral infarction without residual deficits; Z90.5 Acquired absence of kidney; Z20.828 Contact with and (suspected) exposure to other viral communicable diseases; Z68.33 Body mass index [BMI] 33.0-33.9, adult
CPT/HCPCS: 36415; 71045; 74018; 74176; 76001; 76705; 78226; 80048; 80053; 80076; 82040; 82150; 82247; 82248; 82962; 83690; 83735; 84450; 84460; 84484; 85025; 85610; 85730; 86850; 86900; 86901; 87081; 87426; 93005; G0378; J0696; J2001; J2250; J2405; J2543; J2704; J3480